=== PATIENT | female | born 1965 ===

== ENCOUNTER 2017-10-06 12:11 | Emergency (ER) | payer MEDICAID ==
[~2017-10-06] VITALS: Ht 147.3 cm; Wt 76.5 kg
[2017-10-06 12:22] VITALS: Ht 147.3 cm; Wt 76.5 kg
[2017-10-06 15:13] VITALS: BP 139/83
== END 2017-10-06 15:13 | disposition home or self-care (01) ==
LOC: ED 12:11
DX: M54.5 Low back pain (principal)